=== PATIENT | female | born 1975 | race Caucasian/White ===

== ENCOUNTER → 2023-03-18 13:36 | Outpatient (CLI) | payer OTHER, SELFPAY ==
[2023-03-19 09:30] LABS: Rubeola Measles IgG < 13.5 AU/mL (Immune >16.4); Varicella IgG Antibody 1013 index (Immune >165)
[2023-03-20 10:42] LABS: Mumps Virus IgG Antibody <9.0 AU/mL (Immune >10.9)
[2023-03-21 20:27] LABS: Rubella Antibody IgG 18.9 IU/mL (>15)
== END ==
PROVIDERS: Family Provider Obstetrics & Gynecology; Referring Provider Physician Assistant; Visit Provider Physician Assistant
DX: Z02.1 Encounter for pre-employment examination (principal)
CPT/HCPCS: 36415; 86735; 86762; 86765; 86787